=== PATIENT | male | born 1950 | race Caucasian/White ===

== ENCOUNTER → 2023-04-26 | Outpatient (CLI) | payer MEDICARE, OTHER ==
--- NOTE | 2023-04-26 15:55 | P.PN ---
Subjective DATE: 04/26/2023 CONSULTATION/NEW PATIENT EVALUATION HISTORY OF PRESENT ILLNESS/SLEEP-WAKE EVALUATION: 72 year old gentleman had been evaluated in the sleep center for obstructive sleep apnea hypopnea syndrome. Patient has been diagnosed with obstructive sleep apnea in 2015, is on treatment to with the CPAP, sometimes feels difficulties related to the pressure in the middle of the night. I checked his CPAP unit. Range of the pressure for to 20 cm of water, average 11.9. Usage is 90% of time for more then 4 hours, average 4.8 hours per night. Leak is 20 L/m which is acceptable. Apnea-hypopnea index is 1.8 which is normal. SLEEP SCHEDULE: Usually sleep schedule from 1011 PM until 5:30 AM 7 days a week. FALLING ASLEEP: No problems with falling asleep. DURING SLEEP: No snoring or episodes of stop breathing during the sleep while using CPAP. No history of hypnogogical hallucinations, sleep paralysis, or cataplexy. DURING THE DAY/WAKE STATE: Patient denied any significant excessive daytime sleepiness. [place] sleepiness scale is 5, which is normal. Patient doesn't take naps. PAST MEDICAL HISTORY: Pituitary adenoma, adrenal insufficiency, hypothyroidism, testicular hypofunction with low testosterone level, sarcoidosis of the lung. PAST SURGICAL HISTORY: Surgical treatment for pituitary adenoma 10 years ago an d radiation therapy for regrowth adenoma 7 years ago. MEDICATIONS: Synthroid 125 g once a day, testosterone, hydrocortisone, fenofibrate 48 mg once a day, vitamin D and K supplement. SOCIAL HISTORY: Negative for smoking, alcohol consumption occasional. FAMILY HISTORY: Hypertension, heart problems. REVIEW OF SYSTEMS: No snoring with CPAP. No fevers. No double vision. No recent chest pain. No shortness of breath. No abdominal pain. No bleeding episodes. No blood in urine. No seizure episodes. PHYSICAL EXAMINATION: GENERAL: A pleasant patient without any distress. VITAL SIGNS: BP 117/73 , HR 74 , RR 18 , weight 192.0 pounds, height 5 foot 11 inches, body mass index 26.7 . HEENT: PERRLA, EOMI. Evaluation of oropharynx showed tongue protrudes midline, low position of soft palate Mallampati 3. NECK: Supple. No JVD. Thyroid is not palpable. 16 inches in circumference. LUNGS: Clear to percussion and to auscultation. Good air exchange. No wheezing or rhonchi. HEART: S1, S2 regular. No murmurs, gallops or rubs. ABDOMEN: Soft and nontender. Bowel sounds are present. No organomegaly appreciated. EXTREMITIES: No clubbing or cyanosis. WAX BALL KNOCK OUT WORKER: Awake, alert, and oriented x3. Cranial nerves 2 to 7 intact. There is no fasciculation or atrophy noted. No focal deficits observed. ASSESSMENT: 1. Obstructive sleep apnea-hypopnea syndrome. Patient demonstrated great compliance with treatment, benefiting from treatment. Sometimes difficulties to tolerate pressure in the middle of the night. 2. Status post surgery and radiation therapy for pituitary adenoma. 3. Adrenal insufficiency. 4. Hypothyroidism. 5 testicular hypofunction with low testosterone level. 6 . History of sarcoidosis. PLAN: 1. Patient will continue to use CPAP equipment every night for the whole night. I adjusted range of the pressure to the level of 413 centimeters of water. ramp was changed to automatic regimen. I explained to the patient how to regulate ramp. 3. Preferable position during sleep on the side. 4. No driving if patient feels any sleepiness. Patient is aware of civil and criminal liability for unsafe driving. 5. Sleep hygiene with regular sleep time for at least 7.5-8 hours. 6. follow-up visit in 6 months or earlier if patient has any problems. Thank you very much for referring this patient for consultation. Sincerely, Dwight Coffey MD, PhD, FAASM. Diplomat of [place] [employer], Sleep Medicine Board by [place] [employer] [place] [employer] Media Production Manager of [facility] [place]
== END ==
LOC: 3 N SLEEP 14:50
PROVIDERS: ATTEND Internal Medicine
DX: G47.33 Obstructive sleep apnea (adult) (pediatric) (principal); E03.9 Hypothyroidism, unspecified; D86.9 Sarcoidosis, unspecified; E27.40 Unspecified adrenocortical insufficiency; E27.49 Other adrenocortical insufficiency; E29.1 Testicular hypofunction; Z79.890 Hormone replacement therapy; Z86.018 Personal history of other benign neoplasm; Z92.3 Personal history of irradiation; Z88.2 Allergy status to sulfonamides; Z99.89 Dependence on other enabling machines and devices
CPT/HCPCS: 99202

== ENCOUNTER → 2023-12-13 | Outpatient (CLI) | payer MEDICARE, OTHER ==
--- NOTE | 2023-12-13 12:27 | P.PN ---
Subjective DATE: 12/13/2023 FOLLOW UP VISIT. Patient with obstructive sleep apnea hypopnea syndrome return to sleep center for follow-up visit. Information from previous visit have been reviewed. Patient is using PAP equipment every night for the whole night, getting PAP supplies in time. The patient does not have significant problems with the mask, PAP unit and humidification. [place] sleepiness scale is 3. I checked information from PAP unit. PAP unit pressure 4-13, average 12.3 cm H2O. Usage is 80% for more then 4 hours, average 4.3 hours per night. Sometimes patient does not start to use machine in the movement while falling asleep and starting to use it later during the night. Leak is 16 l/m, which is in acceptable range. Apnea Hypopnea Index is 1.4, which is normal. MEDICATIONS:1. Synthroid 125 mcg once a day 2. Hydrocortisone 10 mg twice a day 3. Testosterone 4. Fenofibrate During physical exam: GENERAL: A pleasant patient without any distress. VITAL SIGNS: Please see below, weight 199.4 pounds, BMI 28.1. HEENT: PERRLA, EOMI.low position of soft palate, Mallapati 3 . NECK: Supple. No JVD. LUNGS: Clear to percussion and to auscultation. Good air exchange. No wheezing or rhonchi. HEART: S1, S2 regular. ABDOMEN: Soft and nontender.[] EXTREMITIES: No clubbing or cyanosis. REFERENCE LIBRARIAN: Awake, alert, and oriented x3. No focal deficit. Impressions: 1. Obstructive sleep apnea-hypopnea syndrome. Patient demonstrated good compliance with treatment, benefiting from treatment. 2. Status post surgery and radiation therapy for pituitary adenoma. 3. Hypothyroidism. 4. Adrenal insufficiency. 5. Testicular hypofunction with low testosterone level. 6. History of sarcoidosis. Plan: 1. Continue using PAP equipment every night for the whole night. 2. To change air filter at least 1-2 times per month. 3. PAP unit should stay lower then position of the head. 4. Advised patient to remove all remaining water from humidifier canister daily and make it dry after each usage. Refill canister with fresh distilled water before each usage. 5. Sleep hygiene with regular time in bed for at least 8 hours. 6. Precautions related to driving. No driving if feel any sleepiness. 7. I will maintain prescription for PAP supplies including mask, tube, filters. 8. Follow up visit in 6 months or earlier if patient has any problems. 9. Watching weight. Thank you very much for allowing me to participate in the management of your patient. Dwight Coffey MD, PhD, FAASM. Diplomat of [place] [employer], Sleep Medicine Board by [place] [employer] Medicine Director Of Placement of [facility] [place] Objective - Vital Signs Vital signs: Vital Signs Temp 97.7 F 12/13/23 12:12 Pulse 54 L 12/13/23 12:12 Resp 16 12/13/23 12:12 BP 135/82 12/13/23 12:12 Pulse Ox 98 12/13/23 12:12 FiO2 Intake & Output 12/12/23 12/13/23 12/13/23 18:59 06:59 18:59 Weight 90.265 kg
[2023-12-13 12:54] VITALS: BP 135/82; PULSE 54; RESP 16; TEMP 97.7
== END ==
LOC: 3 N SLEEP 11:49
PROVIDERS: ATTEND Internal Medicine
DX: G47.33 Obstructive sleep apnea (adult) (pediatric) (principal); E03.9 Hypothyroidism, unspecified; E29.1 Testicular hypofunction; E27.40 Unspecified adrenocortical insufficiency; Z86.018 Personal history of other benign neoplasm; Z98.890 Other specified postprocedural states; Z99.89 Dependence on other enabling machines and devices; Z87.39 Personal history of other diseases of the musculoskeletal system and connective tissue; Z92.3 Personal history of irradiation; Z79.890 Hormone replacement therapy; Z88.2 Allergy status to sulfonamides
CPT/HCPCS: 99212

== ENCOUNTER → 2024-07-10 | Outpatient (CLI) | payer MEDICARE, OTHER ==
[2024-07-10 12:00] VITALS: BP 118/74; PULSE 76; RESP 16; TEMP 97.6
--- NOTE | 2024-07-10 12:13 | P.PROGSL ---
Subjective DATE: 07/10/2024 FOLLOW UP VISIT. Patient with obstructive sleep apnea hypopnea syndrome return to sleep center for follow-up visit. Information from previous visit have been reviewed. Patient is using PAP equipment every night for the whole night, getting PAP supplies in time. The patient does not have significant problems with the mask, PAP unit and humidification. [place] sleepiness scale is 9, which is borderline. I checked information from PAP unit. PAP unit pressure 4-13, average 12.3 cm H2O. Usage is 80% for more then 4 hours, average 4.9 hours per night. Leak is 16 l/m, which is in acceptable range. Apnea Hypopnea Index is 2.7, which is normal. MEDICATIONS have been reviewed, please see below. During physical exam: GENERAL: A pleasant patient without any distress. VITAL SIGNS: Please see below, weight is 193 lbs. HEENT: PERRLA, EOMI.low position of soft palate, Mallapati 3. NECK: Supple. No JVD. LUNGS: Clear to percussion and to auscultation. Good air exchange. No wheezing or rhonchi. HEART: S1, S2 regular. ABDOMEN: Soft and nontender.[] EXTREMITIES: No clubbing or cyanosis. PANTS MAKER: Awake, alert, and oriented x3. No focal deficit. Impressions: 1. Obstructive sleep apnea-hypopnea syndrome. Patient demonstrated great compliance with treatment, benefiting from treatment. 2. Hypothyroidism. 3. Status post surgical treatment and radiation therapy for pituitary adenoma. 4. Adrenal insufficiency. 5. History of sarcoidosis. 6. Testicular hypofunction with low testosterone level. Plan: 1. Continue using PAP equipment every night for the whole night. 2. Sleep hygiene with regular time in bed for at least 7.5-8 hours 3. PAP unit should stay lower then position of the head. 4. Advised patient to remove all remaining water from humidifier canister daily and make it dry after each usage. Refill canister with fresh distilled water before each usage. 5. Watching weight. 6. Precautions related to driving. No driving if feel any sleepiness. 7. I will maintain prescription for PAP supplies including mask, tube, filters. 8. Follow up visit in 8 months or earlier if patient has any problems. Thank you very much for allowing me to participate in the management of your patient. Dwight Coffey MD, PhD, FAASM. Diplomat of [place] [employer], Sleep Medicine Board by [place] [employer] Digital Producer of [facility] [place] Objective - Vital Signs Vital Signs: Vital Signs Temp 97.6 F 07/10/24 11:59 Pulse 76 07/10/24 11:59 Resp 16 07/10/24 11:59 BP 118/74 07/10/24 11:59 Pulse Ox 97 07/10/24 11:59 FiO2 Intake & Output 07/09/24 07/10/24 07/10/24 18:59 06:59 18:59 Weight 87.543 kg Home Medications: Home Medications Medication Instructions Recorded Confirmed Type Levothyroxine Sodium [Synthroid] 125 mcg PO DAILY 09/19/15 07/10/24 History Fenofibrate Nanocrystallized 48 mg PO DAILY 12/13/23 07/10/24 History [Fenofibrate] Hydrocortisone [Cortef] 10 mg PO BID 12/13/23 07/10/24 History Testosterone Cypionate See Rx Instructions .ROUTE .COMPLEX 12/13/23 07/10/24 History [Depo-Testosterone] Vitamin D2/Vitamin K1 [Vit D2-K1 1 ml PO WEEKLY 12/13/23 07/10/24 History 20-120 Mcg/0.1ML Drops]
== END ==
LOC: 3 N SLEEP 11:38
PROVIDERS: ATTEND Internal Medicine
DX: G47.33 Obstructive sleep apnea (adult) (pediatric) (principal); E03.9 Hypothyroidism, unspecified; E27.40 Unspecified adrenocortical insufficiency; D68.8 Other specified coagulation defects; Z98.890 Other specified postprocedural states; Z92.3 Personal history of irradiation; Z87.09 Personal history of other diseases of the respiratory system; Z99.89 Dependence on other enabling machines and devices; Z88.2 Allergy status to sulfonamides; Z79.890 Hormone replacement therapy
CPT/HCPCS: 99212